=== PATIENT | male | born 1970 | race Caucasian/White ===

== ENCOUNTER 2019-02-04 09:40 | Outpatient (REF) | payer MEDICAID, SELFPAY ==
[2019-02-04 21:32] LABS: Absolute Basophil Count 0.02 k/cumm (0.0-0.2); Absolute Lymphocyte Count 1.07 k/cumm (1.2-3.4); Absolute Monocyte Count 0.52 k/cumm (0.11-0.7); Absolute Neutrophil Count 2.39 k/cumm (1.2-6.7); Basophils % 0.5; Eosinophils % 2.4; HCT 45.2 % (40.0-50.0); HGB 15.7 g/dL (13.5-17.5); Lymphocytes % 26.1; Mean Corp. HGB Concentration 34.7 g/dL (32.0-36.0); Mean Corpuscular Hemoglobin 30.3 pg (27.0-33.0); Mean Corpuscular Volume 87.1 fL (80-95); Mean Platelet Volume 11.7 fL (8.0-11.0); Monocytes % 12.7; Neutrophils % 58.3; Platelet Count 255 x1000/uL (130-400); RBC 5.19 m/cumm (4.50-6.00); RBC Distribution Width 13.1 % (11.8-14.1)
[2019-02-04 21:50] LABS: ALT 30 U/L (12-78); AST 18 U/L (15-37); Alkaline Phosphatase 55 U/L (46-116); Anion Gap 7.5 mmol/L (3-11); BUN 22 mg/dL (7-18); Bilirubin, Total 0.7 mg/dL (0.2-1.0); CO2 28.5 mmol/L (21.0-32.0); CREATININE 0.87 mg/dL (0.70-1.30); Calculated LDL 182; Chloride 102 mmol/L (98-107); Cholesterol 249 mg/dL (50-200); Glucose 91 mg/dL (70-100); HDL Cholesterol 57 mg/dL (40-60); Potassium 4.2 mmol/L (3.5-5.1); Sodium 138 mmol/L (136-145); TSH (W/Ref FT4) 0.41 uIU/mL (0.358-3.74); Total Protein 7.1 g/dL (6.4-8.2); Triglyceride 50 mg/dL (30-150)
[2019-02-06 10:39] LABS: PSA, Screening 3.2 ng/ml (0-2.5)
== END 2019-02-04 10:00 ==
LOC: NCHCN 09:40
PROVIDERS: Visit Provider Family Medicine
DX: E05.80 Other thyrotoxicosis without thyrotoxic crisis or storm (principal); D23.9 Other benign neoplasm of skin, unspecified; F10.11 Alcohol abuse, in remission; Z82.49 Family history of ischemic heart disease and other diseases of the circulatory system; Z12.5 Encounter for screening for malignant neoplasm of prostate
CPT/HCPCS: 80053; 80061; 83721; 84153; 84443; 85025

== ENCOUNTER 2019-05-11 13:04 | Outpatient (REF) | payer MEDICAID, SELFPAY ==
[2019-05-13 11:15] LABS: PSA, Diagnostic 2.4 ng/ml (0-3.5)
== END 2019-05-11 13:24 ==
LOC: NCHCN 13:04
PROVIDERS: Visit Provider Family Medicine
DX: R97.20 Elevated prostate specific antigen [PSA] (principal); Z80.42 Family history of malignant neoplasm of prostate
CPT/HCPCS: 84153; 84154

== ENCOUNTER 2020-02-10 09:01 | Outpatient (REF) | payer MEDICAID, SELFPAY ==
[2020-02-10 21:15] LABS: HGB 15.6 g/dL (13.5-17.5); Mean Corp. HGB Concentration 35.5 g/dL (32.0-36.0); Mean Corpuscular Hemoglobin 30.4 pg (27.0-33.0); Mean Corpuscular Volume 85.6 fL (80-95); Mean Platelet Volume 11.5 fL (8.0-11.0); Platelet Count 266 x1000/uL (130-400); RBC 5.14 m/cumm (4.50-6.00); RBC Distribution Width 12.8 % (11.8-14.1); White Blood Cell Count 4.25 k/cumm (4.4-10.8)
[2020-02-10 21:42] LABS: TSH (W/Ref FT4) 0.28 uIU/mL (0.36-3.74)
[2020-02-10 22:07] LABS: FREE T4 0.95 ng/dL (0.76-1.46)
[2020-02-11 18:02] LABS: Absolute Basophil Count 0.02 k/cumm (0.0-0.2); Absolute Eosinophil Count 0.38 k/cumm (0.0-0.7); Absolute Lymphocyte Count 0.93 k/cumm (1.2-3.4); Absolute Monocyte Count 0.52 k/cumm (0.11-0.7); Absolute Neutrophil Count 2.29 k/cumm (1.2-6.7); Basophils % 0.5; Eosinophils % 9.2; Lymphocytes % 22.5; Monocytes % 12.6; Neutrophils % 55.2
[2020-02-12 11:32] LABS: PSA, Screening 1.8 ng/mL (0.0-3.5)
== END 2020-02-10 09:21 ==
LOC: NCHCN 09:01
PROVIDERS: Visit Provider Nurse Practitioner Community Health
DX: E23.0 Hypopituitarism (principal); R97.20 Elevated prostate specific antigen [PSA]; Z80.42 Family history of malignant neoplasm of prostate; Z12.5 Encounter for screening for malignant neoplasm of prostate
CPT/HCPCS: 84153; 85027; 84439; 84443; 85007

== ENCOUNTER 2023-01-08 17:46 | Outpatient (REF) | payer MEDICAID, SELFPAY ==
[2023-01-08 15:35] LABS: Calculated LDL 179 mg/dL (<100); Cholesterol 246 mg/dL (<200); HDL Cholesterol 55 mg/dL (40-60); Triglyceride 63 mg/dL (<150)
== END 2023-01-08 17:47 | disposition home or self-care (01) ==
LOC: NCHCN 17:46
PROVIDERS: Visit Provider Nurse Practitioner Family
DX: E78.5 Hyperlipidemia, unspecified (principal)
CPT/HCPCS: 80061

== ENCOUNTER 2023-02-28 15:11 | Outpatient (REF) | payer MEDICAID, SELFPAY ==
[2023-02-28 16:38] LABS: TSH (W/Ref FT4) 0.44 uIU/mL (0.36-3.74)
== END 2023-02-28 15:12 | disposition home or self-care (01) ==
LOC: NCHCN 15:11
PROVIDERS: Visit Provider Nurse Practitioner Family
DX: E05.80 Other thyrotoxicosis without thyrotoxic crisis or storm (principal)
CPT/HCPCS: 84443

== ENCOUNTER 2024-03-17 11:32 | Outpatient (REF) | payer MEDICAID, SELFPAY ==
[2024-03-17 14:35] LABS: HCT 45.6 % (40.0-50.0); HGB 15.3 g/dL (13.5-17.5); MCHC 33.6 % (32.0-36.0); MCV 89 fL (80-95); MPV 11.2 fL (8.0-11.0); Platelet Count 235 10^3/uL (130-400); RDW 12.3 % (11.8-14.1); RDW-SD 41.1 fL; WBC 4.73 10^3/uL (4.4-10.8)
[2024-03-17 15:06] LABS: ALT 22 U/L (16-63); AST 21 U/L (15-37); Albumin 3.6 g/dL (3.4-5.0); Alkaline Phosphatase 48 U/L (46-116); Anion Gap 3.8 mmol/L (3-11); BUN 18 mg/dL (7-18); Bilirubin, Total 0.65 mg/dL (0.2-1.0); CO2 31.2 mmol/L (21.0-32.0); CREATININE 0.9 mg/dL (0.70-1.30); Calcium 8.5 mg/dL (8.5-10.1); Calculated LDL 165 mg/dL (<100); Chloride 104 mmol/L (98-107); Cholesterol 237 mg/dL (<200); Estimated GFR 101.49 (mL/min/1.73m2); Glucose 98 mg/dL (74-106); HDL Cholesterol 53 mg/dL (40-60); Potassium 4.2 mmol/L (3.5-5.1); Sodium 139 mmol/L (136-145); TSH (W/Ref FT4) 0.55 uIU/mL (0.36-3.74); Total Protein 6.8 g/dL (6.4-8.2); Triglyceride 98 mg/dL (<150)
[2024-03-17 23:00] LABS: PSA, Screening 3.1 ng/mL (<=3.5)
== END 2024-03-17 11:33 | disposition home or self-care (01) ==
LOC: NCHCN 11:32
PROVIDERS: PCP Nurse Practitioner Family; Visit Provider Nurse Practitioner Family
DX: E05.90 Thyrotoxicosis, unspecified without thyrotoxic crisis or storm (principal); R79.89 Other specified abnormal findings of blood chemistry; Z13.228 Encounter for screening for other metabolic disorders; Z13.220 Encounter for screening for lipoid disorders; Z12.5 Encounter for screening for malignant neoplasm of prostate; Z00.00 Encounter for general adult medical examination without abnormal findings
CPT/HCPCS: 80053; 80061; 84153; 85027; 84443